=== PATIENT | male | born 1975 | race Caucasian/White ===

== ENCOUNTER → 2020-04-20 10:22 | Outpatient (CLI) | payer OTHER, SELFPAY ==
--- NOTE | ~2020-04-20 | US_ITS ---
EXAMINATION: US soft tissue abdomen EXAM DATE: 04/20/2020 10:54 INDICATION: Palpable abnormalities. TECHNIQUE: Multiple grayscale and Doppler images of the abdominal soft tissue were obtained (by a chioma hnologist who performed the scan) and subsequently reviewed. There is no prior study for comparison. FINDINGS: Several different regions were of clinical concern. Images labeled right abdomen palpable abnormality demonstrates a small focal slightly hyperechoic region measuring 8 x 5 x 8 mm, could be a lipoma. Th ere is a larger similar very minimally hyperechoic region labeled left upper quadrant palpable abnorm ality, probably also a lipoma which could be encapsulated measuring 1.5 x 1.2 x 1.6 cm. Along the umbilical region there is suspected to be a small to moderate-sized umbilical hernia, with a defect in the abdominal wall and bulging of omental fat suspected. Herniated region measures 3.2 x 2.7 cm. No peristalsis, no evidence of bowel. IMPRESSION: 1. Probable 2 small abdominal lipomas. 2. Probable small to moderate-sized umbilical hernia. Reviewed, dictated and finalized at location B.
== END ==
PROVIDERS: PCP Physician Assistant; Visit Provider Physician Assistant
DX: K42.9 Umbilical hernia without obstruction or gangrene (principal); D17.1 Benign lipomatous neoplasm of skin and subcutaneous tissue of trunk
CPT/HCPCS: 76705

== ENCOUNTER 2022-05-19 15:29 | Emergency (ER) | payer OTHER, SELFPAY ==
--- NOTE | ~2022-05-19 | XR_ITS ---
XR chest 2V 05/19/2022 16:28 Indication: Right-sided chest pain Procedure: 2 view chest Comparison: No prior studies for comparison. Findings: Heart size normal. There are calcified granulomas in both lungs. No focal air space disease , pulmonary edema, pleural effusion or suspected pneumothorax. 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 Impression: 1: No acute cardiopulmonary disease. Reviewed, dictated and finalized at location A. Impression: 1: No acute cardiopulmonary disease.
[2022-05-19 15:32] VITALS: BP 151/69; PULSE 107; RESP 18; TEMP 36.5; O2SAT 97
--- NOTE | 2022-05-19 15:44 | ECG_ITS ---
Measurements Intervals [place] Rate: 104 P: 58 CA: 159 QRS: 9 QRSD: 83 T: 51 QT: 304 QTc: 400 Interpretive Statements SINUS TACHYCARDIA POSSIBLE LEFT ATRIAL ENLARGEMENT CANNOT RULE OUT SEPTAL INFARCT, AGE INDETERMINATE CONSIDER INFERIOR INFARCT, AGE INDETERMINATE ABNORMAL ECG NO PREVIOUS ECG AVAILABLE FOR COMPARISON Electronically Signed On 05-19-2022 15:57:00 CDT by Kyle Arzola D.O.
--- NOTE | 2022-05-19 15:52 | ED.CHESTPAIN ---
HPI - Chest Pain General Chief Complaint: Chest Pain <KATHY Holden Last Filed: 05/19/22 18:01> Stated Complaint: Chest Pain, SOB <KATHY Holden Last Filed: 05/19/22 18:01> Time Seen by Provider: 05/19/22 15:37 <KATHY Holden Last Filed: 05/19/22 18:01> History of Present Illness HPI narrative: Patient is a 46-year-old male with a history of hypertension here for evaluation of cough for the past week and a half. Patient states the cough is nonproductive but he has frequent coughing fits that produces a pain in the center of his chest. Patient denies chest pain at rest. Positive sick contacts, patient works at a high school. No leg swelling, fevers, chills, loss of consciousness, nausea or vomiting. He has no cardiac history, states he was recently diagnosed with hypertension but has made lifestyle changes and it is well controlled without medication. He quit smoking tobacco several years ago. <KATHY Holden Last Filed: 05/19/22 18:01> Related Data Allergies/Adverse Reactions: Allergies Allergy/AdvReac Type Severity Reaction Status Date / Time No Known Allergies Allergy Verified 06/18/19 16:18 <Vivi Sutherland PA-C - Last Filed: 05/19/22 18:01> Review of Systems Review of Systems: Gen: Denies fevers or chills Eyes: Denies eye pain or visual change ENT: Denies congestion Respiratory: Reports cough and shortness of breath CV: Denies chest pain or palpitations GI: Denies abdominal pain nausea, emesis or diarrhea : denies burning, urgency, frequency or hematuria Musculoskeletal: Denies back pain or muscle pain Neuro: Denies numbness, tingling, weakness or focal weakness Skin: Denies rash Except as documented, all other systems reviewed and negative <KATHY Holden Last Filed: 05/19/22 18:01> [facility] Social History Social History: Social History (System 06/18/19 @ 16:18 by Anahi R. Vandever) Smoking status: Former smoker Smoking end date: 07/17/10 Alcohol intake: current <Vivi Sutherland PA-C - Last Filed: 05/19/22 18:01> Exam Narrative: APPEARANCE: Well appearing, no pain in distress, well-nourished. Head: Normocephalic and atraumatic. EYES: PERRLA/EOMI, conjunctivae clear NOSE: No nasal drainage EARS: External ear normal in appearance THROAT: Oropharynx is clear. Mucous membranes are moist. NECK: Supple. No adenopathy, no masses. RESPIRATORY: coughing throughout exam. scant expiratory wheezing in right upper lobe. Airway patent, respirations nonlabored. CARDIOVASCULAR: Regular rate and rhythm without murmurs, rubs, or gallops. ABDOMINAL: Normoactive bowel sounds. Soft, nontender, nondistended. No rebound tenderness or guarding. MUSCULOSKELETAL: Extremities are warm and well-perfused. Moves all extremities well. No edema. NEURO: Normal speech. No focal neurologic deficits. SKIN: Skin is warm and dry. No rashes. PSYCHIATRIC: Normal affect/mood.. <Vivi Sutherland PA-C - Last Filed: 05/19/22 18:01> Course USED CAR RENOVATOR/PA Physician Supervision For this patient encounter, I reviewed the USED CAR RENOVATOR or PA documentation, treatment plan, and medical decision making. <Lissette Tomlinson MD - Last Filed: 06/07/22 13:29> Vital Signs Vital signs: Vital Signs Temperature 97.7 F 05/19/22 15:32 Pulse Rate 107 H 05/19/22 15:32 Respiratory Rate 18 05/19/22 15:32 Blood Pressure 151/69 H 05/19/22 15:32 Pulse Oximetry 97 05/19/22 15:32 Oxygen Delivery Room Air 05/19/22 15:32 Temperature 97.7 F 05/19/22 15:32 Pulse Rate 107 H 05/19/22 15:32 Respiratory Rate 16 05/19/22 18:00 Blood Pressure 151/69 H 05/19/22 15:32 Pulse Oximetry 97 05/19/22 15:32 Oxygen Delivery Room Air 05/19/22 15:32 <iVvi Sutherland PA-C - Last Filed: 05/19/22 18:01> Vital Signs Temperature 97.7 F 05/19/22 15:32 Pulse Rate 107 H 05/19/22 15:32 Resp
[2022-05-19 16:15] LABS: Basophils Percent Auto 0.5 % (0.2-1.2); Eosinophils Absolute Auto 0.2 K/mm3 (0-0.3); Eosinophils Percent Auto 2.1 % (0-4.4); Hematocrit 45.5 % (42.0-52.0); Hemoglobin 15.3 g/dL (14.0-18.0); Immature Granulocyte Absolute 0.14 K/mm3 (0.00-0.031); Immature Granulocyte Percent A 1.7 % (0-0.5); Lymphocytes Absolute Auto 0.61 K/mm3 (0.9-3.2); Lymphocytes Percent Auto 7.2 % (18.3-44.2); Mean Corpuscular HGB Conc 33.6 g/dl (32-36); Mean Corpuscular Hemoglobin 30.5 pg (26-34); Mean Corpuscular Volume 90.6 fl (80-100); Mean Platelet Volume 10.4 fl (7.4-10.4); Monocytes Absolute Auto 0.6 K/mm3 (0.1-0.6); Monocytes Percent Auto 6.7 % (2.6-8.5); Neutrophils Absolute Auto 6.9 K/mm3 (1.3-6.7); Neutrophils Percent Auto 81.8 % (45.5-73.1); Platelet Count Result 222 k/mm3 (150-375); Red Blood Count 5.02 M/mm3 (4.6-6.20); Red Cell Distribution Width 13.4 % (11.5-14.5); White Blood Count 8.4 K/mm3 (4.5-10.0)
[2022-05-19] MEDS: SODIUM CHLORIDE 0.9% IV 1,000 ML 999 ML IV CONT (16:23)
[2022-05-19 16:26] LABS: Alanine Aminotransferase 48 U/L (6-50); Albumin Level 4.5 g/dL (3.5-5.1); Alkaline Phosphatase 92 U/L (38-126); Anion Gap 14 mmol/L (8-16); Aspartate Amino Transferase 48 U/L (17-59); Bilirubin,Total 0.6 mg/dL (0.2-1.3); Blood Urea Nitrogen 18 mg/dL (9-20); Calcium 8.7 mg/dL (8.4-10.2); Carbon Dioxide 26 mmol/L (22-30); Chloride 99 mmol/L (98-107); Estimated CRCL calculation 102 ml/min; Estimated Glomerular Filt Rate > 60; Glucose 120 mg/dL (65-110); Lipase 226 U/L (23-300); Prothrombin Time 13.1 Seconds (11.1-14.7); Sodium 139 mmol/L (137-145)
[2022-05-19 16:27] LABS: Partial Thromboplastin Time 27.6 SECONDS (22.3-36.8)
--- NOTE | 2022-05-19 16:27 | PC.NURSE ---
Per RILEY Trinidad, no aspirin needed.
[2022-05-19 16:38] LABS: NT Pro B Type Natriuretic Pept 32 pg/mL (5-100); Troponin I < 0.012 ng/mL (0.000-0.034)
[2022-05-19] MEDS: BENZONATATE 100 MG CAPSULE PO (16:58)
[2022-05-19 16:59] LABS: Influenza A QL RT-PCR Positive (Negative); Influenza B QL RT-PCR Negative (Negative); SARS-CoV-2 RNA PCR Negative
[2022-05-19] MEDS: KETOROLAC 15 MG/ML VIAL (*BKC) IV PUSH (17:15)
[2022-05-19 18:00] VITALS: RESP 16
== END 2022-05-19 18:00 | disposition home or self-care (01) ==
PROVIDERS: Physician Assistant; Emergency Provider Emergency Medicine; PCP Physician Assistant
DX: J10.1 Influenza due to other identified influenza virus with other respiratory manifestations (principal); I10 Essential (primary) hypertension; Z87.891 Personal history of nicotine dependence; Z20.822 Contact with and (suspected) exposure to COVID-19
CPT/HCPCS: 36415; 71046; 80053; 83690; 83880; 84484; 85025; 85610; 85730; 87502; 93005; 96361; 96374; 99284; A9270; J1885; J7030; U0003; U0005